=== PATIENT | female | born 1985 | race American Indian/Alaskan Native ===

== ENCOUNTER 2017-05-25 12:06 | Emergency (ER) | payer OTHER ==
[2017-05-25 12:24] VITALS: BP 123/74
--- NOTE | 2017-05-25 12:24 | Emergency Department Report ---
Chief Complaint: Back Pain/Injury Stated Complaint: BACK PAIN Time Seen by Provider: 05/25/17 12:20 - HPI History of Present Illness: R sided back pain x 2 days. pain is worse with movement. hx of same - ROS Review of Systems: - dysuria + back pain - sob - Exam Physical Exam: R sided back pain no vertebral tenderness MSE screening note: Focused history and physical exam performed. Due to findings the following was ordered: labs ED Disposition for MSE Condition: Stable
[2017-05-25 13:00] LABS: Bacteria,Urine 1+ /HPF (Negative); Bilirubin,Urine NEG (Negative); Blood,Urine LG (Negative); Ketones,Urine NEG (Negative); Leukocyte Esterase,Urine SM (Negative); Mucus,Urine FEW /HPF; Nitrite,Urine NEG (Negative); Protein,Urine <15 mg/dL mg/dL (Negative); Urobilinogen,Urine < 2.0 mg/dL (<2.0)
--- NOTE | 2017-05-25 15:48 | Emergency Department Report ---
ED Female HPI - General Chief complaint: Back Pain/Injury Stated complaint: BACK PAIN Time Seen by Provider: 05/25/17 12:20 Source: patient Mode of arrival: Ambulatory Limitations: No Limitations - History of Present Illness Initial comments: This is a 31-year-old female that presents to the ED c/o of right sided back pain, urinary urgency, urinary frequency, and burning sensation while urinating x2 days. Patient denies any trauma to region. Patient stated she has hx of this and was diagnosed with UTI. Patient denies vaginal bleeding, vaginal discharge, hematuria, dysuria, abdominal pain, nausea, vomiting, chest pain, shortness of breath, stiff neck, numbness or tingling, nausea or vomiting. Patient denies any allergies. MD Complaint: other (burning sensation while urinating) -: Gradual, days(s) (2) Radiation: non-radiating Severity: mild Consistency: constant Improves with: none Worsens with: urination Are you Now?: No Last Menstrual Period: 05/19/17 EDC: 02/23/18 Associated Symptoms: denies other symptoms. denies: vaginal discharge, vaginal bleeding, abdominal pain, nausea/vomiting, fever/chills, headaches, loss of appetite, dysuria, hematuria, rash, seizure, shortness of breath, syncope, weakness - Related Data Sexually active: No Previous Rx's Medication Instructions Recorded Last Taken Type Famotidine [Pepcid] 20 mg PO DAILY #30 tablet 09/16/15 Unknown Rx Oxycodone HCl/Acetaminophen 1 each PO Q8HR PRN #20 tablet 09/16/15 Unknown Rx [Percocet 10/325 mg] Ciprofloxacin HCl [Ciprofloxacin 500 mg PO Q12HR #14 tab 05/25/17 Unknown Rx TAB] Allergies Allergy/AdvReac Type Severity Reaction Status Date / Time No Known Allergies Allergy Verified 09/16/15 03:29 ED Review of Systems ROS: Stated complaint: BACK PAIN Other details as noted in HPI Constitutional: denies: chills, fever Eyes: denies: eye pain, eye discharge, vision change ENT: denies: ear pain, throat pain Respiratory: denies: cough, shortness of breath, wheezing Cardiovascular: denies: chest pain, palpitations Endocrine: no symptoms reported Gastrointestinal: denies: abdominal pain, nausea, diarrhea Genitourinary: urgency, frequency. 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 - Surgical History Past Surgical History?: Yes Hx Open Heart Surgery: Yes (3 VSD repairs as a child) Additional Surgical History: 3 heart surgeries as child - Social History Smoking Status: Never Smoker Substance Use Type: Non Opiate Pain - Medications Home Medications: Home Medications Medication Instructions Recorded Confirmed Last Taken Type Famotidine [Pepcid] 20 mg PO DAILY #30 tablet 09/16/15 Unknown Rx Oxycodone HCl/Acetaminophen 1 each PO Q8HR PRN #20 tablet 09/16/15 Unknown Rx [Percocet 10/325 mg] Ciprofloxacin HCl [Ciprofloxacin 500 mg PO Q12HR #14 tab 05/25/17 Unknown Rx TAB] ED Physical Exam - General Limitations: No Limitations General appearance: alert, in no apparent distress - Head Head exam: Present: atraumatic, normocephalic, normal inspection - Eye Eye exam: Present: normal appearance, PERRL, EOMI. Absent: scleral icterus, conjunctival injection, nystagmus, periorbital swelling, periorbital tenderness Pupils: Present: normal accommodation - ENT ENT exam: Present: normal exam, normal orophraynx, mucous membranes moist, TM's normal bilaterally, normal external ear exam - Neck Neck exam: Present: normal inspection, full ROM. Absent: tenderness, meningismus, lymphadenopathy, thyromegaly - Respiratory Respiratory exam: Present: normal lung sounds bilaterally. Absent: respiratory distress, wheezes, rales, rhonchi, stridor, chest wall tenderness, accessory muscle use, decreased breath sounds, prolonged expiratory - Cardiovascular Cardiovascular Exam: Present: regular rate, normal rhythm, normal heart sounds. Absent: bradycardia, tachycardia, irregular rhythm, systolic murmur, diastolic murmur, rubs, gallop - GI/Abdominal GI/Abdominal exam: Present: soft, normal bowel sounds. Absent: distended, tenderness, guarding, rebound, rigid, diminished bowel sounds - Rectal Rectal exam: Present: deferred - Extremities Exam Extremities exam: Present: normal inspection, full ROM, normal capillary refill. Absent: tenderness, pedal edema, joint swelling, calf tenderness - Back Exam Back exam: Present: normal inspection, full ROM, CVA tenderness (R). Absent: tenderness, CVA tenderness (L), muscle spasm, paraspinal tenderness, vertebral tenderness, rash noted - Expanded Back Exam Expanded Back exam: Present: normal rectal tone. Absent: saddle anesthesia Back exam: Negative Straight Leg Raising: Left, Right - Neurological Exam Neurological exam: Present: alert, oriented X3, CN II-XII intact, normal gait, reflexes normal - Psychiatric Psychiatric exam: Present: normal affect, normal mood - Skin Skin exam: Present: warm, dry, intact, normal color. Absent: rash ED Course Vital Signs 05/25/17 12:19 Temperature 98.7 F Pulse Rate 80 Respiratory 16 Rate Blood Pressure 123/74 O2 Sat by Pulse 100 Oximetry - Reevaluation(s) Reevaluation #1: 05/25/17 15:53 Patient is speaking in full sentences with no signs of distress noted. ED Medical Decision Making - Medical Decision Making 31-year-old female that presents with pyelonephritis. UA has been obtained with elevated white blood cell count. Positive right CVA tenderness. Patient be treated with ciprofloxacin for 7 days. Patient was instructed to follow-up with primary care doctor in 3-5 days or if symptoms worsen or continue return to emergency room as was possible. At time time of discharge, the patient does not seem toxic or ill in appearance. No acute signs of distress noted. Patient agrees to discharge treatment plan of care. No further questions noted by the patient. Critical care attestation.: If time is entered above; I have spent that time in minutes in the direct care of this critically ill patient, excluding procedure time. ED Disposition Clinical Impression: Pyelonephritis Disposition: DC-01 TO HOME OR SELFCARE Is pt being admited?: No Does the pt Need Aspirin: No Condition: Stable Instructions: Urinary Tract Infection in Women (ED), Acute Pyelonephritis (ED) , Ciprofloxacin (By mouth) Additional Instructions: follow-up with primary care doctor in 3-5 days or if symptoms worsen or continue return to emergency room as was possible. Take full course of antibiotics prescribed Prescriptions: Ciprofloxacin HCl [Ciprofloxacin TAB] 500 mg PO Q12HR #14 tab Referrals: PRIMARY CARE, [Primary Care Provider] - 3-5 Days CHARITO CASEY MD [Staff Physician] - 3-5 Days [facility] [Outside] - 3-[address] [facility] [Outside] - 3-5 Days Forms: Work/School Release Form(ED)
== END 2017-05-25 16:05 | disposition home or self-care (01) ==
LOC: ED 12:06
DX: N12 Tubulo-interstitial nephritis, not specified as acute or chronic (principal)
CPT/HCPCS: 81001; 81025